=== PATIENT | female | born 1975 | race Asian ===

== ENCOUNTER 2020-06-03 07:12 | Emergency (ER) | payer OTHER ==
[~2020-06-03] VITALS: Ht 162.6 cm; Wt 68.0 kg
[2020-06-03 07:15] VITALS: BP_SYST 130
[2020-06-03] MEDS ORDERED: ACETAMINOPHEN 500 MG TABLET PO ONE (07:45)
[2020-06-03 07:56] LABS: BASOPHILS # (AUTO) 0.1 K/uL (0.0-0.2); BASOPHILS % (AUTO) 1.3 % (0.0-2.0); HEMATOCRIT 34.4 % (36-48); HEMOGLOBIN 11.3 g/dL (12.0-16.0); LYMPHOCYTES # (AUTO) 0.8 K/uL (1.0-5.5); LYMPHOCYTES % (AUTO) 15.8 % (20.5-51.5); MEAN CORPUSCULAR HEMOGLOBIN 25 pg (27-31); MEAN CORPUSCULAR HGB CONC 33 % (32-36); MEAN CORPUSCULAR VOLUME 76 fL (79.0-98.0); MONOCYTES # (AUTO) 0.5 K/uL (0.0-1.0); NEUTROPHILS # (AUTO) 3.4 K/uL (1.8-7.7); NEUTROPHILS % (AUTO) 71.9 % (40.0-70.0); PLATELET COUNT (AUTO) 280 K/uL (130-430); RED BLOOD CELL COUNT(AUTO) 4.51 MIL/uL (4.2-6.2); RED CELL DISTRIBUTION WIDTH 14.2 % (9.0-15.0); WHITE BLOOD COUNT (AUTO) 4.8 K/uL (4.8-10.8)
[2020-06-03 08:07] LABS: ANION GAP 8 (5-15); C-REACTIVE PROTEIN QUANT 1.8 mg/dL (0-0.5); CALCIUM 8.3 mg/dL (8.4-11.0); CHLORIDE 103 mmol/L (98-107); CREATININE 0.91 mg/dL (0.55-1.30); GLUCOSE 92 mg/dL (70-99); POTASSIUM 3.9 mmol/L (3.5-5.1); SODIUM SERUM 135 mmol/L (136-145); UREA NITROGEN, BLOOD 11 mg/dL (8-21)
[2020-06-03 08:09] LABS: GFR AFRICAN AMERICAN 86 mL/min (>90)
[2020-06-03 09:22] VITALS: BP_SYST 82
== END 2020-06-03 09:22 | disposition home or self-care (01) ==
LOC: SED 07:12
DX: U07.1 COVID-19 (principal)
CPT/HCPCS: 36415; 71045; 80048; 81002; 81025; 84484; 85025; 86140; 93005; 99285

== ENCOUNTER 2020-06-16 07:54 | Emergency (ER) | payer OTHER ==
[~2020-06-16] VITALS: Ht 175.3 cm; Wt 81.6 kg
[2020-06-16 07:55] VITALS: BP_SYST 122
[2020-06-16] MEDS ORDERED: PROCHLORPERAZINE EDISYLATE 10 MG/2 ML VIAL IVP ONE (08:15)
[2020-06-16] MEDS ORDERED: NS 500 ML IV ONE ×2 (08:15→09:45)
[2020-06-16] MEDS ORDERED: ACETAMINOPHEN 500 MG TABLET PO ONE (08:15)
[2020-06-16 08:35] LABS: BASOPHILS % (AUTO) 0.2 % (0.0-2.0); EOSINOPHILS # (AUTO) 0.2 K/uL (0.0-0.4); EOSINOPHILS % (AUTO) 1.6 % (0.0-4.0); HEMATOCRIT 39.4 % (36-48); HEMOGLOBIN 12.5 g/dL (12.0-16.0); LYMPHOCYTES % (AUTO) 39.5 % (20.5-51.5); MEAN CORPUSCULAR HEMOGLOBIN 25 pg (27-31); MEAN CORPUSCULAR HGB CONC 32 % (32-36); MEAN CORPUSCULAR VOLUME 78 fL (79.0-98.0); MONOCYTES # (AUTO) 0.7 K/uL (0.0-1.0); MONOCYTES % (AUTO) 6.7 % (1.7-9.3); NEUTROPHILS # (AUTO) 5.3 K/uL (1.8-7.7); PLATELET COUNT (AUTO) 391 K/uL (130-430); RED BLOOD CELL COUNT(AUTO) 5.07 MIL/uL (4.2-6.2); RED CELL DISTRIBUTION WIDTH 14.6 % (9.0-15.0); WHITE BLOOD COUNT (AUTO) 10.2 K/uL (4.8-10.8)
[2020-06-16 08:42] LABS: CALCIUM 8.8 mg/dL (8.4-11.0); CREATININE 0.89 mg/dL (0.55-1.30)
[2020-06-16 08:48] LABS: ALBUMIN 3.1 g/dL (3.4-4.8); TOTAL BILIRUBIN 0.4 mg/dL (0.0-1.0)
[2020-06-16] MEDS ORDERED: KETOROLAC TROMETHAMINE 15 MG VIAL ONE (09:41)
[2020-06-16] MEDS ORDERED: KETOROLAC TROMETHAMINE 15 MG VIAL IVP ONE (09:45)
[2020-06-16 10:05] VITALS: BP_SYST 122
== END 2020-06-16 10:05 | disposition home or self-care (01) ==
LOC: SED 07:54
DX: B30.9 Viral conjunctivitis, unspecified (principal); B34.9 Viral infection, unspecified
CPT/HCPCS: 36415; 71045; 80053; 81002; 81025; 83690; 83880; 84484; 85025; 93005; 96374; 99285; J0780; J1885

== ENCOUNTER 2022-01-13 03:16 | Emergency (ER) | payer OTHER ==
[~2022-01-13] VITALS: Ht 175.3 cm; Wt 81.6 kg
[2022-01-13 03:50] VITALS: BP_SYST 116
[2022-01-13] MEDS ORDERED: LIDOCAINE 1%, 20 ML MDV 20 ML ONE (03:59)
[2022-01-13] MEDS ORDERED: LIDOCAINE 1% 10 MG/ML, 20 ML MDV INJ ONE (04:45)
[2022-01-13] MEDS ORDERED: IBUPROFEN 600 MG TABLET PO ONE (04:45)
[2022-01-13] MEDS ORDERED: NAPR-686 PO (05:09)
[2022-01-13 05:15] VITALS: BP_SYST 122
== END 2022-01-13 05:15 | disposition home or self-care (01) ==
LOC: SED 03:16
DX: S60.445A External constriction of left ring finger, initial encounter (principal); Z79.899 Other long term (current) drug therapy; G89.11 Acute pain due to trauma; W49.04XA Ring or other jewelry causing external constriction, initial encounter; Y93.89 Activity, other specified; Y92.89 Other specified places as the place of occurrence of the external cause; Y99.8 Other external cause status
CPT/HCPCS: 64450; 99284; J2001